=== PATIENT | female | born 1990 ===

== ENCOUNTER 2024-07-30 23:58 | Observation (INO) | payer SELFPAY ==
[2024-07-31] MEDS ORDERED: Diazepam 10 MG/2 ML SYRINGE ONE (01:18)
[2024-07-31] MEDS ORDERED: Boostrix 0.5 ML (Tdap) VIAL (>/=7 yrs of age) ONE (01:19)
[2024-07-31 01:35] LABS: #Basophils Less than 0.03 10x3/uL (0.0-0.2); #Eosinophils Less than 0.03 10x3/uL (0.0-0.7); %Basophils 0.2 % (0.0-1.0); %Eosinophils 0.1 % (0.0-10.0); %Lymphocytes 15.2 % (21.0-51.0); %Monocytes 7.5 % (0.0-10.0); %Neutrophils 76.7 % (42.0-75.0); Hematocrit 36.8 % (36.0-47.0); Hemoglobin 12.3 g/dL (12.0-16.0); Mean Corpuscular HGB CONC 33.4 g/dL (32.0-36.0); Mean Corpuscular Hemoglobin 29.1 pg (27.0-31.0); Mean Corpuscular Volume 87.2 fL (78.0-98.0); Mean Platelet Volume 8.9 fL (7.4-10.4); Platelet Count 379 10x3/uL (130-400); RBC Distribution Width 12.9 % (11.5-14.5); Red Blood Cell (RBC) Count 4.22 mill/uL (4.20-5.40)
[2024-07-31 01:43] LABS: BHCG - Serum Negative (NEGATIVE); Pregs Control Background? CLEAR/WHITE (CLR/WHITE); Pregs Control Bar Appear? YES (CONTROL BAR)
[2024-07-31 01:51] LABS: Lipase 27 U/L (8-78)
[2024-07-31 01:54] LABS: Acetaminophen Less than 10 mcg/mL (Less than 10); Alcohol Less than 10.0 mg/dL (Less than 10); Salicylate Less than 8.0 mg/dL (Less than 8.0)
[2024-07-31 01:56] LABS: ALT (SGPT) 22 U/L (8-55); AST (SGOT) 75 U/L (5-34); Albumin 3.7 g/dL (3.5-5.0); Alkaline Phosphatase 58 U/L (40-110); Anion Gap 15 mmol/L (10-20); BUN (Urea Nitrogen) 18 mg/dL (7.0-18.7); Bilirubin, Total 0.4 mg/dL (0.2-1.2); Calc. Creatinine Clearance 0 mL/min (70-130); Calcium 9.1 mg/dL (7.8-10.44); Carbon Dioxide 19 mmol/L (22-29); Chloride 105 mmol/L (98-107); Estimated GFR 66; Globulin 4.6 g/dL (2.4-3.5); Glucose 86 mg/dL (70-105); Potassium 3.7 mmol/L (3.5-5.1); Protein, Total 8.3 g/dL (6.0-8.3); Sodium 135 mmol/L (136-145); Troponin I Less than 0.010 ng/mL (< 0.028)
[2024-07-31 03:43] LABS: Bacteria/HPF None Seen HPF (None Seen); Bilirubin Negative (Negative); Blood, Urine Negative (Negative); CAUTI Indications for Culture Alt mental st,lethar; Clarity Clear (Clear); Glucose, Urine (Dipstick) Normal (Negative); Ketone, Urine 20 mg/dL (Negative); Leukocyte Negative Leu/uL (Negative); Nitrite Negative (Negative); Protein, Urine (Dipstick) 10 mg/dL (Neg-Trace); RBC/HPF None Seen HPF (0-3); Specific Gravity, Urine 1.015 (1.002-1.036); Squamous Epithelial None Seen HPF (0-3); Urobilinogen Normal mg/dL (Less than 2); WBC/HPF 0-3 HPF (0-3); pH, Urine 7.5 (5.0-9.0)
[2024-07-31 03:44] LABS: Urine Culture Reflex No No
[2024-07-31 03:50] LABS: Amphetamine Not Detected (NotDetected); Barbiturates Screen Not Detected (NotDetected); Benzodiazepine Screen Detected (NotDetected); Cocaine Metabolite Screen Not Detected (NotDetected); Methadone Not Detected (NotDetected); Methamphetamine Not Detected (NotDetected); Opiate Screen Not Detected (NotDetected); Oxycodone Screen Not Detected (NotDetected); Phencyclidine (PCP) Not Detected (NotDetected); THC/Cannabinoid Screen Not Detected (NotDetected); Tricyclic Screen Not Detected (NotDetected)
[2024-07-31 04:54] VITALS: BMI 44.1
[2024-07-31] MEDS ORDERED: Diazepam 10 MG/2 ML SYRINGE IVP PRN (05:09)
[2024-07-31] MEDS ORDERED: Ondansetron ODT 4 MG TAB SL PRN (05:15)
[2024-07-31] MEDS ORDERED: Acetaminophen 325 MG TAB PO PRN (05:15)
[2024-07-31] MEDS ORDERED: Ondansetron PF 4 MG/2 ML Vial IVP PRN (05:15)
[2024-07-31] MEDS: Famotidine 20 MG TAB PO SCH (10:04)
[2024-07-31] MEDS: Sodium Chloride 0.9% 500 ML IV SCH (10:04)
[2024-07-31] MEDS: Enoxaparin 40 MG (0.4 mL) SYRINGE SC SCH (10:04)
[2024-08-01 11:48] VITALS: BP 130/67
[2024-08-01 11:51] VITALS: TEMP 97.8
== END 2024-08-01 15:53 | disposition home or self-care (01) ==
LOC: ERS 23:58 → ERHOLD 07-31 04:14 → T4-A 07-31 08:10
PROVIDERS: ADMIT Student in an Organized Health Care Education/Training Program; ATTEND Internal Medicine
DX: T43.292A Poisoning by other antidepressants, intentional self-harm, initial encounter (principal); R44.3 Hallucinations, unspecified; F41.9 Anxiety disorder, unspecified; F32.A Depression, unspecified; F12.90 Cannabis use, unspecified, uncomplicated; Z79.899 Other long term (current) drug therapy
CPT/HCPCS: 70450; 71045; 80053; 80306; 80307; 81001; 83690; 84443; 84484; 84703; 85025; 90471; 90715; 93005; 94760; 96372; 96374; G0378; J1650; J3360; J7030